=== PATIENT | male | born 1990 | race Caucasian/White ===

== ENCOUNTER 2019-07-30 14:32 | Emergency (ER) | payer MEDICAID ==
[~2019-07-30] VITALS: Ht 182.9 cm; Wt 83.0 kg
[~2019-07-30 14:32] MED LIST: HYDR-4383 PO
[2019-07-30] MEDS ORDERED: AMOX500C2 PO (15:08)
[2019-07-30] MEDS ORDERED: CHLO473M3 PO (15:08)
[2019-07-30] MEDS ORDERED: HYDR-4353 PO (15:08)
[2019-07-30 15:14] VITALS: BP 139/56
[2019-07-30] MEDS ORDERED: benzocaine (Anbesol) 12ml bottle MM PRN (15:15)
== END 2019-07-30 15:33 | disposition home or self-care (01) ==
LOC: ER 14:34
DX: K02.9 Dental caries, unspecified (principal); F10.99 Alcohol use, unspecified with unspecified alcohol-induced disorder; Z79.899 Other long term (current) drug therapy; Y90.9 Presence of alcohol in blood, level not specified
CPT/HCPCS: 99283

== ENCOUNTER → 2024-01-07 | Outpatient (CLI) | payer MEDICAID ==
[~2024-01-07] MED LIST changes: +CHLO473M3 PO
== END | disposition home or self-care (01) ==
LOC: RAD 17:36
PROVIDERS: ATTEND Family Medicine
DX: G56.22 Lesion of ulnar nerve, left upper limb (principal)
CPT/HCPCS: 72050; 73030

== ENCOUNTER 2024-01-30 11:43 | Emergency (ER) | payer MEDICAID ==
[~2024-01-30] VITALS: Ht 177.8 cm; Wt 73.7 kg
[~2024-01-30 11:43] MED LIST changes: +CHLO473M13 PO; -CHLO473M3 PO
[2024-01-30 12:24] VITALS: BP 133/95; PULSE 107; RESP 17; O2SAT 97
[2024-01-30] MEDS: methylPREDNISolone sod succ 125mg/2ml vial IM ONE (13:02)
[2024-01-30 13:11] LABS: HEMOGLOBIN 16.1 g/dl (14.0-17.9); LYMPHOCYTES # (AUTO) 1.3 X10'3 (1.1-4.8); MONOCYTES # (AUTO) 0.3 X10'3 (0-0.9); NEUTROPHILS % (AUTO) 86.3 % (42-75)
[2024-01-30 13:12] LABS: BASOPHILS % (AUTO) 0.2 % (0-1); EOSINOPHILS % (AUTO) 0.3 % (0-6); HEMATOCRIT 45.9 % (42.0-52.0); LYMPHOCYTES % (AUTO) 10.7 % (21-51); MEAN CORPUSCULAR HEMOGLOBIN 30.7 PG (27.0-31.0); MEAN CORPUSCULAR VOLUME 87.9 FL (78-98); MEAN PLATELET VOLUME 8.8 FL (7.4-10.4); MONOCYTES % (AUTO) 2.5 % (2-12); NEUTROPHILS # (AUTO) 10.3 X10'3 (1.8-7.7); PLATELET COUNT 290 X10'3 (140-440); RED BLOOD COUNT 5.23 X10'6 (4.70-6.10); RED CELL DISTRIBUTION WIDTH 12.6 % (11.5-14.5)
[2024-01-30 13:20] LABS: GLUCOSE 111 MG/DL (70-104); POTASSIUM 3.7 MMOL/L (3.5-5.1); SODIUM 139 MMOL/L (135-145)
[2024-01-30 13:21] LABS: ALBUMIN 3.9 G/DL (3.4-5.0); ANION GAP 13 (8-16); BLOOD UREA NITROGEN 14 MG/DL (7-18); BUN/CREATININE RATIO 13.5 (10.0-20.0); CALCIUM 9.1 MG/DL (8.5-10.1); CHLORIDE 103 MMOL/L (99-107); CREATININE 1.04 MG/DL (0.60-1.10); eCRCL 105 ML/MIN; eGFR 83 ML/MIN
[2024-01-30 13:38] LABS: MONOTEST NEGATIVE (Neg)
[2024-01-30] MEDS ORDERED: PRED10TA23 PO (14:26)
[2024-01-30] MEDS: diphenhydrAMINE 25mg capsule PO ONE (14:50)
[2024-01-30 14:58] VITALS: TEMP 98.8
== END 2024-01-30 15:01 | disposition home or self-care (01) ==
LOC: ER 11:43
DX: L95.9 Vasculitis limited to the skin, unspecified (principal); Z79.899 Other long term (current) drug therapy
CPT/HCPCS: 36415; 80048; 85025; 85651; 86308; 96372; 99283; J2919; Q0163

== ENCOUNTER 2024-04-02 13:36 | Emergency (ER) | payer MEDICAID ==
[~2024-04-02] VITALS: Ht 177.8 cm; Wt 93.7 kg
[2024-04-02 13:37] VITALS: TEMP 98.8
[2024-04-02] MEDS ORDERED: AMOX-117 PO (13:55)
[2024-04-02] MEDS ORDERED: NAPR-56 PO (13:55)
[2024-04-02 14:11] VITALS: BP 121/89; PULSE 69; RESP 16; O2SAT 96
== END 2024-04-02 14:13 | disposition home or self-care (01) ==
LOC: ER 13:36
DX: K04.7 Periapical abscess without sinus (principal); Z79.899 Other long term (current) drug therapy; Z72.89 Other problems related to lifestyle
CPT/HCPCS: 99283